=== PATIENT | male | born 1965 | race Caucasian/White ===

== ENCOUNTER 2019-07-13 15:41 | Emergency (ER) | payer MEDICARE ==
[~2019-07-13] VITALS: Ht 175.3 cm; Wt 77.1 kg
--- NOTE | 2019-07-13 16:28 | NUR ---
RIGHT HIP PAIN AFTER A GLF - 2 DAYS AGO
[2019-07-13] MEDS ORDERED: MORPHINE SULFATE INJ 10 MG/ML DISP.SYRIN IM ONE (17:30)
[2019-07-13] MEDS ORDERED: MORPHINE SULFATE INJ 4 MG/ML DISP.SYRIN ONE (18:05)
--- NOTE | 2019-07-13 18:21 | NUR ---
the patient wants to smoke; called security to escort the patient
--- NOTE | 2019-07-13 18:22 | NUR ---
back from smoking
--- NOTE | 2019-07-13 18:22 | NUR ---
wheeled to radiology for CT
--- NOTE | 2019-07-13 21:59 | NUR ---
Patient discharged to home in stable condition. Written and verbal after care instructions given. Patient verbalizes understanding of instruction.
[2019-07-13 22:40] VITALS: BP 138/73
== END 2019-07-13 22:40 | disposition home or self-care (01) ==
LOC: ER 15:44
DX: S22.41XA Multiple fractures of ribs, right side, initial encounter for closed fracture (principal); S80.01XA Contusion of right knee, initial encounter; S70.01XA Contusion of right hip, initial encounter; I10 Essential (primary) hypertension; E78.5 Hyperlipidemia, unspecified; K21.9 Gastro-esophageal reflux disease without esophagitis; Z86.73 Personal history of transient ischemic attack (TIA), and cerebral infarction without residual deficits; W05.0XXA Fall from non-moving wheelchair, initial encounter; Y93.89 Activity, other specified; Y92.89 Other specified places as the place of occurrence of the external cause; Y99.8 Other external cause status
CPT/HCPCS: 71250; 73502; 73564; 96372; 99284; J2270